=== PATIENT | female | born 1995 | race Hispanic/Latino ===

== ENCOUNTER 2018-01-07 10:05 | Inpatient (IN) | payer OTHER ==
[2018-01-07] MEDS: Lactated Ringer's 1,000 ML IV SCH ×3 (10:28→19:27)
[2018-01-07] MEDS ORDERED: Bicitra 30 ML UDCUP PO SCH (10:40)
[2018-01-07] MEDS ORDERED: Ondansetron PF 4 MG/2 ML Vial IVP PRN ×2 (10:40→14:21)
[2018-01-07] MEDS ORDERED: Promethazine HCl 25 MG/ML VIAL IM PRN ×2 (10:40→14:21)
[2018-01-07 10:45] VITALS: BMI 37.5
[2018-01-07 10:52] LABS: Hemoglobin 12.5 g/dL (12.0-16.0); Mean Corpuscular HGB CONC 34.4 g/dL (32.0-36.0); Mean Corpuscular Hemoglobin 28.2 pg (27.0-31.0); Mean Corpuscular Volume 81.9 fL (78.0-98.0); Mean Platelet Volume 9.1 fL (7.4-10.4); Platelet Count 206 thou/uL (130-400); RBC Distribution Width 14.9 % (11.5-14.5); Red Blood Cell (RBC) Count 4.45 mill/uL (4.20-5.40); White Blood Cell (WBC) Count 7.3 thou/uL (4.8-10.8)
[2018-01-07] MEDS ORDERED: CEFAZOLIN 2 GM/50 ML BAG IVPB SCH (11:15)
[2018-01-07] MEDS ORDERED: ePHEDrine/0.9% NaCl/PF SYRINGE 50 mg/10 ml ONE ×2 (11:26→12:08)
[2018-01-07] MEDS ORDERED: Ketorolac Tromethamine 30 MG/ML VIAL ONE ×2 (11:26→12:08)
[2018-01-07] MEDS ORDERED: Dexamethasone 20 MG/5 ML VIAL ONE (11:26)
[2018-01-07] MEDS ORDERED: Ondansetron PF 4 MG/2 ML Vial ONE ×2 (11:26→12:08)
[2018-01-07 11:37] LABS: HBSAg Index 0.29 S/CO (0-0.99); Hep B Surf Ag Non-Reactive S/CO (NonReactive); Syphilis Antibody Nonreactive (Nonreactive); Syphilis Antibody Index 0.03 S/CO (<1.00 Non-Reactive)
[2018-01-07] MEDS ORDERED: Bicitra 30 ML UDCUP ONE (11:47)
[2018-01-07] MEDS ORDERED: Fentanyl 100 MCG/2 ML VIAL ONE (12:07)
[2018-01-07] MEDS ORDERED: Morphine PF 1 MG/ML SYR ONE (12:08)
[2018-01-07] MEDS ORDERED: Oxytocin 10 UNITS/ML VIAL ONE ×2 (12:08→14:09)
[2018-01-07] MEDS ORDERED: Dexamethasone 4 mg/ml Vial ONE (12:08)
[2018-01-07] MEDS ORDERED: PHENYLEPHRINE-NS 100 MCG/ML 10 ML SYRINGE ONE (12:08)
[2018-01-07] MEDS ORDERED: Lidocaine 2% MPF 10 ML AMP (For Epidural Use) ONE (12:09)
[2018-01-07] MEDS ORDERED: Bupivacaine 0.75% W/DEXTROSE 8.25% 2 ML AMP ONE (12:09)
--- NOTE | 2018-01-07 13:00 | PDOC.LDHP ---
Labor and Delivery H&P Chief complaint: scheduled section HPI: 22yo at 39w1d by LMP for PCS for breech presentation. Current gestational age (weeks): 39 Due date: 01/12/18 Dating criteria: last menstrual period Grav: 1 Para: 0 Current complications: none Abnormal US findings: Yes (bicornuate uterus, in left horn) Past Medical History: denies Current medications: pre- vitamins Previous surgical history: none Allergies/Adverse Reactions: Allergies Allergy/AdvReac Type Severity Reaction Status Date / Time tramadol Allergy Intermediate Hives Verified 01/07/18 10:44 Social history: none - Physical Exam Vital signs reviewed and normal: yes General: NAD Heart: RRR Lungs: CTAB Abdomen: gravid Extremeties: no edema FHT: category 1 Mcintire contractions every: none - OB Labs Blood type: B RH: positive Antibody Screen: negative HIV: negative RPR: negative HEPSAg: negative 1 hour GCT: negative GBS: negative Urine drug screen: negative Rubella: immune - Assessment L&D Assessment: scheduled primary section - Plan Plan: admit to L&D, to OR for section, informed consent obtained, anesthesia consult for pain management -: beside sono shows persistent breech presentation.
--- NOTE | 2018-01-07 13:01 | PDOC.OPDEL ---
OB Operative/Delivery Note Delivery Dr/Surgeon: Aldo Pre-Delivery Diagnosis: scheduled section (, breech, bicornuate uterus) Procedure/Post Delivery Dx: primary low transverse CS Weeks gestation: 39 Anesthesia: spinal - Findings A Sex: male - Additional Findings/Plan Placenta delivered: spontaneous findings: low transverse hysterotomy without extension, normal uterus, normal tubes, normal ovaries Post delivery plan: routine recovery
[2018-01-07] MEDS ORDERED: HYDROmorphone 2 MG/ML VIAL SLOW IVP PRN (14:21)
[2018-01-07] MEDS ORDERED: L&D-Morphine 4 MG/ML VIAL SLOW IVP PRN (14:21)
[2018-01-07] MEDS ORDERED: Meperidine HCl/PF 25 MG/ML VIAL SLOW IVP PRN (14:21)
[2018-01-07] MEDS ORDERED: Naloxone HCl 0.4 mg/ml Vial IVP PRN ×2 (14:21)
[2018-01-07] MEDS ORDERED: Ondansetron HCl/PF 4 MG/2 ML Vial IVP PRN (14:21)
[2018-01-07] MEDS ORDERED: diphenhydrAMINE 50 MG/ML VIAL IVP PRN (14:21)
[2018-01-07] MEDS ORDERED: Naloxone HCl 0.4 mg/ml Vial IV PRN (14:21)
[2018-01-07] MEDS ORDERED: Promethazine HCl 25 MG SUPP PR PRN (14:21)
[2018-01-07] MEDS ORDERED: Eucerin (Mineral Oil/Petrolatum,White) 30 gm Jar TOP PRN (14:21)
[2018-01-07] MEDS ORDERED: Ketorolac Tromethamine 30 MG/ML VIAL IVP SCH (14:30)
[2018-01-07] MEDS ORDERED: Communication Order-Pharmacy FS SCH (14:30)
[2018-01-07] MEDS ORDERED: Acetaminophen 325 MG TAB PO PRN (16:15)
[2018-01-07] MEDS ORDERED: Lanolin Ointment 7 GM TUBE TOP PRN (16:15)
[2018-01-07] MEDS ORDERED: Bisacodyl 10 MG SUPP PR PRN (16:15)
[2018-01-07] MEDS ORDERED: diphenhydrAMINE 25 MG CAP PO PRN (16:15)
[2018-01-07] MEDS ORDERED: Simethicone Chewable 80 MG TAB PO PRN (16:15)
[2018-01-07] MEDS ORDERED: HYDROcodone/Acetaminophen 5/325 mg Tablet PO PRN (16:15)
[2018-01-07] MEDS ORDERED: Adacel (T-DAP) 0.5 ML SYRINGE IM ONE (16:15)
[2018-01-07] MEDS: Ferrous Sulfate 325 MG TAB PO SCH (17:54)
[2018-01-07] MEDS: Ibuprofen 800 MG TAB PO SCH (17:54)
[2018-01-07] MEDS: Ondansetron PF 4 MG/2 ML Vial IVP PRN (21:26)
[2018-01-07] MEDS: Docusate Calcium (SURFAK) 240 MG CAP PO SCH (21:33)
[2018-01-07] MEDS: Ketorolac Tromethamine 30 MG/ML VIAL IVP PRN (22:06)
--- NOTE | 2018-01-08 00:20 | OP ---
DATE OF PROCEDURE: 01/07/2018 PREOPERATIVE DIAGNOSES: 1. Intrauterine at 39 weeks and 1 day. 2. Breech presentation. 3. Bicornuate uterus. POSTOPERATIVE DIAGNOSES: 1. Intrauterine at 39 weeks and 1 day. 2. Breech presentation. 3. Bicornuate uterus. PROCEDURE PERFORMED: Primary low-transverse section via Pfannenstiel skin incision. ANESTHESIA: Spinal. CRYPTOLOGIST SURGEON: Gladys PGY III ESTIMATED BLOOD LOSS: 800 mL. QUANTITATIVE BLOOD LOSS: Pending. COMPLICATIONS: None. DRAINS: Pate catheter. PATHOLOGY: None. FINDINGS: Male , rayshawn breech presentation, clear amniotic fluid, bicornuate uterus with the septum midway down the uterus present. Small subserosal fibroid on the anterior surface of the uterus is present. The hysterotomy was without extension, and the tubes and ovaries were normal bilaterally. An excellent hemostasis was noted. OPERATIVE TECHNIQUE: The patient was taken to operating room, where spinal anesthesia was obtained without difficulty. The patient was prepped and draped in a sterile fashion in supine position with leftward tilt. After ensuring adequacy of anesthesia, Pfannenstiel skin incision was made and carried down to the underlying subcutaneous tissue with the knife. The fascia was nicked in the midline with the knife and carried laterally with Garcai scissors. Superior aspect of the fascia was tender with deep palpation and dissected off the rectus bluntly as well as with a Garcia scissors. The inferior aspect of the fascia was tended with two Kochers and dissected off the rectus down to the pubic symphysis with a Garcia scissors. The rectus was bluntly divided in the midline. The peritoneum was bluntly entered and manually retracted. The Sourav O retractor was placed and the lower uterine segment was incised in a transverse fashion and extended with Rascon maneuver and the ridge was brought to the hysterotomy and delivered with standard breech maneuvers. The head was flexed and delivered easily. The 's cord was clamped after delay cord clamping was performed. The was taken to awaiting jessi team. Cord blood was obtained and placenta was allowed to spontaneously deliver. The uterus was exteriorized and the uterine anomaly was noted as above. The uterus was cleared of all clots of debris, and placed back into the abdomen after lapping out the posterior cul-de-sac. The hysterotomy was repaired with #1 Monocryl in running locking fashion. A second imbricating horizontally of #1 Monocryl was placed and hemostasis was noted to be excellent. The pelvis was irrigated and suctioned, and the Sourav O retractor was removed. The rectus muscles were examined, noted to be hemostatic. The fascia was reapproximated with an 0 PDS x2 sutures with excellent reapproximation. Subcutaneous tissue was irrigated and cauterized any bleeders in the area approximately with 2-0 plain gut in a running fashion. The skin was closed with 4-0 Monocryl in subcuticular fashion, and Dermabond was applied as well as the pressure dressing. The patient tolerated the procedure well. Sponge and needle counts were correct x2. The patient was taken to recovery room in stable condition. The patient received Ancef 2 g prior to the procedure. Job ID: [id number]
[2018-01-08] MEDS: Ibuprofen 800 MG TAB PO SCH ×3 (01:04→17:16)
[2018-01-08] MEDS: Ondansetron PF 4 MG/2 ML Vial IVP PRN (06:00)
[2018-01-08] MEDS: Sodium Chloride 0.9% 10 ML ONE ×2 (06:13→08:37)
--- NOTE | 2018-01-08 07:14 | PDOC.PP ---
Post Progress Note Post Day #: 1 Subjective: Patient reports having some nausea with clear liquid diet. She endorses an episode of emesis yesterday when she stood up to go to the bathroom. She reports abdominal cramping that is relieved with pain medication. She reports bleeding about the amount of a period. She has no difficulty ambulating or voiding. She denies flatus. She is breast feeding without difficulty. PO intake tolerated: no (nausea/vomiting) Flatus: no Ambulation: yes Vital Signs (12 hours) Temp Pulse Resp BP Pulse Ox 01/08/18 03:52 97.8 F 82 17 105/56 L 01/08/18 00:09 98.5 F 81 17 106/56 L 01/07/18 20:00 98.4 F 90 20 115/57 L 95 Weight Weight 108.862 kg - Physical Examination General: NAD Cardiovascular: no m/r/g, RRR Respiratory: clear to auscultation bilaterally, non-labored breathing Abdominal: + bowel sounds, lochia (minimal), no distention, appropriately TTP Fundus firm & at: level of umbilicus Skin: CS incision dry & intact, no rash Neurological: no gross focal deficits Psychiatric: A&Ox3, normal affect Result Diagrams: 01/07/18 10:36 Additional Labs: Post Labs Blood Type B POSITIVE 01/07/18 10:36 Hep Bs Antigen Non-Reactive S/CO (NonReactive) 01/07/18 10:36 (1) Term delivered Code(s): O80 - ENCOUNTER FOR FULL-TERM UNCOMPLICATED DELIVERY Status: Acute Comment: 22 y/o ->1 delivered via pLTCS for breech presentation -Continue routine post- care -Pain control with toradol and norco prn. Will transition to ibuprofen today -ADAT, antiemetics prn -Encourage ambulation -Encourage breast feeding -AM Hemagram pending - Assessment/Plan likely d/c home tomorrow
[2018-01-08] MEDS: Ferrous Sulfate 325 MG TAB PO SCH ×2 (07:31→16:28)
[2018-01-08] MEDS: Docusate Calcium (SURFAK) 240 MG CAP PO SCH ×2 (08:26→21:30)
[2018-01-08] MEDS: Prenatal Vitamin 1 TAB PO SCH (08:26)
[2018-01-08] MEDS ORDERED: Sodium Chloride 0.9% 10 ML ONE (08:30)
[2018-01-08] MEDS: Ketorolac Tromethamine 30 MG/ML VIAL IVP PRN (08:38)
[2018-01-08 10:45] LABS: Mean Corpuscular HGB CONC 34.3 g/dL (32.0-36.0); Mean Corpuscular Hemoglobin 28.3 pg (27.0-31.0); Mean Corpuscular Volume 82.7 fL (78.0-98.0); Mean Platelet Volume 9.5 fL (7.4-10.4); Platelet Count 183 thou/uL (130-400); RBC Distribution Width 15.1 % (11.5-14.5); Red Blood Cell (RBC) Count 3.53 mill/uL (4.20-5.40)
[2018-01-08] MEDS: HYDROcodone/Acetaminophen 5/325 mg Tablet PO PRN (21:33)
[2018-01-09] MEDS: Ibuprofen 800 MG TAB PO SCH ×3 (03:09→13:44)
[2018-01-09] MEDS: HYDROcodone/Acetaminophen 5/325 mg Tablet PO PRN ×2 (03:45→08:48)
[2018-01-09] MEDS: Ferrous Sulfate 325 MG TAB PO SCH (08:48)
[2018-01-09] MEDS: Prenatal Vitamin 1 TAB PO SCH (08:48)
[2018-01-09] MEDS: Docusate Calcium (SURFAK) 240 MG CAP PO SCH (08:48)
[2018-01-09 12:58] VITALS: BP 121/58; TEMP 98.3
== END 2018-01-09 17:05 | disposition home or self-care (01) | DRG 788 ==
LOC: L&D 10:05 → 3SW 16:36 → EDSTATUS 01-13 15:50
PROVIDERS: ADMIT Student in an Organized Health Care Education/Training Program; ATTEND Student in an Organized Health Care Education/Training Program
PROC: 10D00Z1 Extraction of Products of Conception, Low, Open Approach (ICD-10-PCS; principal; 2018-01-07)
DX: O32.1XX0 Maternal care for breech presentation, not applicable or unspecified (principal); O34.03 Maternal care for unspecified congenital malformation of uterus, third trimester; O34.13 Maternal care for benign tumor of corpus uteri, third trimester; Q51.3 Bicornate uterus; D25.2 Subserosal leiomyoma of uterus; Z3A.39 39 weeks gestation of pregnancy; Z37.0 Single live birth
CPT/HCPCS: 36415; 51702; 76815; 85027; 86780; 86850; 86900; 86901; 87340; J1100; J1885; J2001; J2274; J2310; J2405; J2590; J3010; J3490